=== PATIENT | male | born 1995 | race African-American/Black ===

== ENCOUNTER → 2024-04-06 07:28 | Outpatient (REF) | payer OTHER, SELFPAY ==
[2024-04-08 16:01] LABS: Quantiferon Mitogen minus NIL 9.93 IU/mL; Quantiferon NIL 0.07 IU/mL; Quantiferon Plus TB1 minus NIL 0.05 IU/mL (<=0.34); Quantiferon Plus TB2 minus NIL 0.08 IU/mL (<=0.34); Quantiferon TB Gold Plus Negative (Negative)
== END ==
LOC: OHS 07:28
PROVIDERS: ATTENDING PHYSICIAN Nurse Practitioner Family
DX: Z23 Encounter for immunization (principal)
CPT/HCPCS: 36415; 86480